=== PATIENT | female | born 1960 | race Caucasian/White ===

== ENCOUNTER 2022-10-20 16:59 | Emergency (ER) | payer OTHER ==
[~2022-10-20] VITALS: Ht 157.5 cm; Wt 77.1 kg
[2022-10-20 17:16] VITALS: BP 155/79
[2022-10-20] MEDS ORDERED: IBUP-2213 PO (18:53)
== END 2022-10-20 19:08 | disposition home or self-care (01) ==
LOC: MED 16:59
DX: S62.353A Nondisplaced fracture of shaft of third metacarpal bone, left hand, initial encounter for closed fracture (principal); E11.9 Type 2 diabetes mellitus without complications; Z79.899 Other long term (current) drug therapy; W19.XXXA Unspecified fall, initial encounter; Y93.89 Activity, other specified; Y92.89 Other specified places as the place of occurrence of the external cause; Y99.8 Other external cause status
CPT/HCPCS: 73130; 99283